=== PATIENT | female | born 1975 | race Caucasian/White ===

== ENCOUNTER 2023-07-16 15:53 | Emergency (ER) | payer OTHER, SELFPAY ==
[2023-07-16] VITALS (17 sets, daily range): BP systolic 122; BP diastolic 88; PULSE 67–86; RESP 14–29; O2SAT 96–100; BMI 25.8
--- NOTE | 2023-07-16 16:50 | PC.NURSE ---
pt presents to ED because pt states that this morning at 2am she woke up with substernal chest pain and numbness and tingling in both feet. pt denies pain radiating into jaw, neck or down either arm. pt states she does having numbness and tingling to her right arm from her fingertip to elbow but has been experiencing the sensation for months. pt states that she went to [facility] this morning when she had the chest pain because she was concerned she was having a heart attack. pt had blood work and chest x-ray done. pt was given 4 baby aspirin to chew and a GI cocktail and had no relief. pt states blood work, ekg, and chest x-ray were all normal. pt was sent home with prescription for klonopin and protonix and diagnosed with anxiety and acid reflux. pt states she is back because pain has not improved.
--- NOTE | 2023-07-16 17:22 | ECG_ITS ---
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
--- NOTE | 2023-07-16 17:23 | ED.CHESTPAI1 ---
HPI - Chest Pain General Chief Complaint: Chest Pain Stated Complaint: CHEST PAIN Time Seen by Provider: 07/16/23 16:43 Source: patient and family Mode of arrival: walk-in History of Present Illness HPI narrative: patient's here for evaluation of chest pain. She states the pain woke her up at approximately 2:30 AM from a sound sleep. It was quite severe home last night. She went to a different hospital emergency room at approximate 4:30 AM this morning had a workup. They felt that they were able rule out cardiovascular diseases. Those laboratory tests were evaluated by myself here. She had a chest x-ray that was normal. She did not have CTA or d-dimer performed. She had no risk factors for deep vein thrombosis or pulmonary embolism and has not had those previously. She actually has no cardiovascular risk factors. She uses small amounts of caffeine products no energy pills or stimulants. She drinks two beers a day and sometimes a little heavier. Does not use tobacco products or illicit drugs. Has no history of hypertension. She gets wellness exams and says her lipid profile is normal. There is no family history. She does not have diabetes or hypertension. She says she suffers from insomnia. Related Data Allergies Allergy/AdvReac Type Severity Reaction Status Date / Time ibuprofen [From Motrin] Allergy Severe Verified 07/16/23 16:06 Exam Narrative Exam Narrative: GENERAL: Well hydrated, appears well, No obvious distress, Awake, Alert, Oriented x 3, Cognition intact HEENT: Normocephalic, No evidence of trauma, injury or infection, airway intact. Conjuntiva normal, no pallor or scleral icterus NECK: Supple, no meningeal irritation, full ROM, non-tender, No JVD. No tenderness to palpation over the cervical spine.no carotid bruit CHEST: Symmetrical, no injury, non-tender, RESP: lungs are clear there is no chest wall sternal or clavicular tenderness to palpation. CARDIO: Normal rate and rhythm, No murmur, Rub, or ectopy during auscultation. ABD: Non-tender, normal BS, no guarding, rebound or rigidity. No pulsatile, masses. No organomegaly NEURO: Neuro at baseline, No motor deficits, CN 2-12 Normal, Mentation inctact. EXTREMITIES: No edema, good tissue perfusion, no venous cords evidence phlebitis soft tissue swelling or cellulitis. SKIN: No petechiae, purpura, or abnormal bruising, warm, dry, no rash Constitutional Vital Signs, click to edit/add: Last Vital Signs Pulse 86 07/16/23 18:17 Resp 20 07/16/23 18:17 BP 122/88 07/16/23 16:06 Pulse Ox 99 07/16/23 18:17 O2 Del Method Room Air 07/16/23 16:06 Course Vital Signs Vital signs: Vital Signs Pulse Rate 84 07/16/23 16:06 Respiratory Rate 18 07/16/23 16:06 Blood Pressure 122/88 07/16/23 16:06 Pulse Oximetry 98 07/16/23 16:06 Oxygen Delivery Method Room Air 07/16/23 16:06 Pulse Rate 86 07/16/23 18:17 Respiratory Rate 20 07/16/23 18:17 Blood Pressure 122/88 07/16/23 16:06 Pulse Oximetry 99 07/16/23 18:17 Oxygen Delivery Method Room Air 07/16/23 16:06 MDM - Chest Pain MDM Narrative Medical decision making narrative: I did review her lab and testing from the other hospital from earlier today. Her BNP troponin routine chemistries were all normal. Chest x-ray was normal. Cardiac troponin was also negative. Here in the Emergency Room are repeat lab including d-dimer ENP troponin are still normal. Her EKG shows sinus rhythm with no evidence of pericarditis. Clinically she has no heart murmur no evidence of heart failure no evidence of cardiovascular disease based on risk profile. CTA will be done to eliminate any remote possibility of vascular problems of the aorta or pericardial effusion. While I anticipate those studies will be normal, I think it's important for him to rule out Lab Data Labs: Lab Results 07/16/23 Range/Units 17:30 D-Dimer 0.22 (<=0.59) mg/L FEU Troponin I High Sens 4.6 (4.0-51.3) pg/mL NT-Pro-B Natriuret Pep 379.0 (<=900.0) pg/mL TSH 2.948 (0.358-3.740) uIU/mL ECG Data Interpretation: EKG shows normal sinus rhythm with no evidence of ischemia injury or infarct. Intervals appear to be normal. Discharge Plan Discharge Chief Complaint: Chest Pain Clinical Impression: Chest pain Patient Disposition: Home, Self-Care Time of Disposition Decision: 18:26 Additional Instructions: patient was advised to consider taking meds that were previously prescribed. follow-up with primary care doctor to consider further outpatient diagnostic testing as indicated Stand Alone Forms: Portal Instructions Referrals: Physician,Non-Staff, MD [Primary Care Provider] - 1 week
--- NOTE | 2023-07-16 17:26 | CT_ITS ---
[address] [address] Patient Name: LOUISE ESTRADA MRN: [id number] date: 1975 Sex: F Assigned Patient Location: ER Current Patient Location: ED.MAIN Accession/Order Number: [id number] Exam Date: 07/16/2023 18:08 Report Date: 07/16/2023 19:04 At the request of: ALEXANDER GUADARRAMA Procedure: CT angio chest CTA CHEST. INDICATION: Pulmonary embolism. COMPARISON: None available. TECHNIQUE: CT pulmonary angiogram. Initially, limited axial non-contrast images through chest obtained to establish proper bolus timing. Subsequently, contrast enhanced axial CT images were obtained through the chest. Axial, sagittal and coronal reformatted maximum intensity projection images and / or 3D volume rendered images created. FINDINGS: PULMONARY ARTERIES: No intraluminal filling defects within the central or segmental pulmonary arteries to suggest pulmonary embolism.. Normal RV:LV ratio (<1). AORTA: The thoracic aorta diameter is normal without aneurysm or dissection. LUNGS: Lungs are clear bilaterally. No pleural effusions.. No pneumothorax. LYMPH NODES: No enlarged mediastinal lymph nodes by CT criteria. HEART: Heart size is normal. No pericardial effusion. UPPER ABDOMEN: Images of the upper abdomen demonstrate no abnormality. MUSCULOSKELETAL: No acute osseous abnormality. CT/CT angio chest IMPRESSION: 1. No pulmonary thromboembolic disease. No aortic aneurysm or dissection. 2. No acute airspace disease. Electronically authenticated by: MO MILLER Date: 07/16/2023 19:04
[2023-07-16 17:48] LABS: D Dimer 0.22 mg/L FEU (<=0.59)
[2023-07-16 17:57] LABS: Troponin I High Sensitivity 4.6 pg/mL (4.0-51.3)
[2023-07-16 17:58] LABS: Thyroid Stimulating Hormone 2.948 uIU/mL (0.358-3.740)
== END 2023-07-16 19:25 | disposition home or self-care (01) ==
PROVIDERS: Emergency Medicine Emergency Medical Services; Emergency Provider Internal Medicine; Family Provider Family Medicine
DX: R07.9 Chest pain, unspecified (principal)
CPT/HCPCS: 36415; 71275; 83880; 84443; 84484; 85378; 93005; 99285; Q9967